=== PATIENT | female | born 1980 | race Hispanic/Latino ===

== ENCOUNTER 2022-07-25 09:10 | Outpatient (CLI) | payer OTHER ==
[2022-07-25] MEDS ORDERED: Iopamidol 370 76% 100 ML VIAL ONE (10:33)
== END 2022-07-25 09:11 | disposition home or self-care (01) ==
LOC: CT 09:10
PROVIDERS: ATTEND Family Medicine
DX: R10.32 Left lower quadrant pain (principal); M54.9 Dorsalgia, unspecified; N20.0 Calculus of kidney; N28.1 Cyst of kidney, acquired; D25.9 Leiomyoma of uterus, unspecified; R93.89 Abnormal findings on diagnostic imaging of other specified body structures; Z90.49 Acquired absence of other specified parts of digestive tract
CPT/HCPCS: 74178; Q9967